=== PATIENT | female | born 1955 | race Caucasian/White ===

== ENCOUNTER 2016-08-11 07:55 | Emergency (ER) | payer OTHER ==
[~2016-08-11 07:55] MED LIST: ALBI50PE SC; AMLO1CAP15 PO; AMLO1CAP5; ATOR20TA9 PO; CALC-56 PO; CANA100T PO; CIPR500S2 PO; EXEN5PEN2; HYDR-3240 PO; INSU100I32 SC; METF500T27 PO; METR500T PO
[2016-08-11] MEDS ORDERED: ASPIRIN 81 MG TABLET CHEW ONE (08:21)
[2016-08-11] MEDS ORDERED: HYDROcodone/APAP 5/325 TABLET ONE (09:11)
[2016-08-12 12:59] LABS: BLOOD UREA NITROGEN 18 mg/dL (7-18)
[2016-08-12 13:01] LABS: IS PT STATUS REG ER OR PRE ER? YES
== END 2016-08-11 12:02 ==
LOC: ED 07:55
DX: M54.12 Radiculopathy, cervical region (principal); I25.2 Old myocardial infarction
CPT/HCPCS: 36415; 71020; 80048; 82040; 84484; 85025; 93005; 99285

== ENCOUNTER 2016-11-02 08:55 | Emergency (ER) | payer OTHER ==
[~2016-11-02] VITALS: Ht 160 cm; Wt 62.0 kg
[2016-11-02 09:49] LABS: HEMATOCRIT 40.2 % (34.6-47.8); HEMOGLOBIN 13.4 g/dL (11.7-16.4); WHITE BLOOD COUNT 5.4 x10^3/uL (3.4-10)
[2016-11-02 09:59] LABS: BLOOD UREA NITROGEN 16 mg/dL (7-18)
[2016-11-02] MEDS ORDERED: MORPHINE SULFATE 4 MG/ML, 1ML ONE (10:57)
[2016-11-02] MEDS ORDERED: ONDANSETRON 2MG/ML, 2ML ONE (10:58)
[2016-11-02] MEDS ORDERED: MORPHINE SULFATE 4 MG/ML, 1ML IVPush PRN (11:00)
[2016-11-02] MEDS ORDERED: ONDANSETRON 2MG/ML, 2ML IVPush ONE (11:00)
[2016-11-02] MEDS ORDERED: OMNIPAQUE 350 MG/ML, 100ML BOTTLE ONE (11:27)
[2016-11-02 12:01] VITALS: BP 146/78
== END 2016-11-02 13:02 | disposition home or self-care (01) ==
LOC: ED 09:08
DX: R10.30 Lower abdominal pain, unspecified (principal); N28.1 Cyst of kidney, acquired; I10 Essential (primary) hypertension; E11.9 Type 2 diabetes mellitus without complications; J44.9 Chronic obstructive pulmonary disease, unspecified
CPT/HCPCS: 36415; 51702; 74177; 80048; 81003; 82040; 85025; 96374; 96375; 99285; J2405; Q9967

== ENCOUNTER 2016-12-24 10:07 | Emergency (ER) | payer OTHER ==
[~2016-12-24] VITALS: Ht 160 cm; Wt 63.0 kg
[2016-12-24] MEDS ORDERED: SODIUM CHLORIDE 0.9% 1,000 ML IV ONE (10:37)
[2016-12-24 10:57] LABS: HEMATOCRIT 43.2 % (34.6-47.8); HEMOGLOBIN 14.5 g/dL (11.7-16.4); WHITE BLOOD COUNT 5.7 x10^3/uL (3.4-10)
[2016-12-24] MEDS ORDERED: SODIUM CHLORIDE FLUSH 10ML SYR IVF ONE (11:00)
[2016-12-24 11:09] LABS: ASPARTATE AMINO TRANSFERASE 22 U/L (15-37); BLOOD UREA NITROGEN 12 mg/dL (7-18)
[2016-12-24 11:13] LABS: PATH.CAST-FLAG NOT PRESENT; SPERM-FLAG NOT PRESENT; SRC-FLAG NOT PRESENT; XTAL-FLAG NOT PRESENT; YLC-FLAG NOT PRESENT
[2016-12-24] MEDS ORDERED: morphine SULFATE 10 MG/ML, 1ML ONE (12:03)
[2016-12-24] MEDS ORDERED: ONDANSETRON 2MG/ML, 2ML ONE (12:03)
[2016-12-24] MEDS ORDERED: ONDANSETRON 2MG/ML, 2ML IVPush ONE (12:30)
[2016-12-24] MEDS ORDERED: MORPHINE SULFATE 4 MG/ML, 1ML IVPush ONE (12:30)
[2016-12-24] MEDS ORDERED: GADOBUTROL 10 MMOL/10 ML VIAL ONE (12:53)
[2016-12-24 15:21] VITALS: BP 136/76
== END 2016-12-24 15:24 | disposition home or self-care (01) ==
LOC: ED 12:09
DX: N28.1 Cyst of kidney, acquired (principal); I10 Essential (primary) hypertension; J44.9 Chronic obstructive pulmonary disease, unspecified; E11.9 Type 2 diabetes mellitus without complications
CPT/HCPCS: 36415; 74183; 80053; 81001; 85025; 96361; 96374; 96375; 99285; A9585; J2405; J7030

== ENCOUNTER 2017-04-04 10:16 | Inpatient (IN) | payer OTHER ==
[~2017-04-04] VITALS: Ht 160 cm; Wt 61.2 kg
[2017-04-04] MEDS ORDERED: SODIUM CHLORIDE 0.9% 1,000ML IVBOLUS ONE (11:00)
[2017-04-04] MEDS ORDERED: ONDANSETRON 2MG/ML, 2ML IVPush ONE (11:00)
[2017-04-04] MEDS ORDERED: ONDANSETRON 2MG/ML, 2ML ONE (11:04)
[2017-04-04] MEDS ORDERED: MORPHINE SULFATE 4 MG/ML, 1ML ONE ×2 (11:04→12:03)
[2017-04-04] MEDS: MORPHINE SULFATE 4 MG/ML, 1ML IVPush PRN ×2 (11:05→12:06)
[2017-04-04 11:16] LABS: ALBUMIN 3.3 g/dL (3.4-5.0); ANION GAP 7 mmol/L (5-15); CALCIUM 8.8 mg/dL (8.5-10.1); CHLORIDE 105 mmol/L (98-107)
[2017-04-04 11:17] LABS: BASOPHILS # (AUTO) 0.03 x10^3/uL (0-0.1); BASOPHILS % (AUTO) 0 % (0-1); EOSINOPHILS # (AUTO) 0.12 x10^3/uL (0-0.4); EOSINOPHILS % (AUTO) 2 % (1-7); LYMPHOCYTES % (AUTO) 20 % (22-44); MD NO; MEAN CORPUSCULAR HGB CONC 33.4 g/dL (32.4-35.8); MEAN CORPUSCULAR VOLUME 83.8 fL (80-100); MEAN PLATELET VOLUME 8.8 fL (7.4-10.4); MONOCYTES # (AUTO) 0.58 x10^3/uL (0.2-0.8); MONOCYTES % (AUTO) 9 % (2-9); NEUTROPHILS # (AUTO) 4.41 x10^3/uL (1.8-6.8); NEUTROPHILS % (AUTO) 69 % (42-75); PLATELET COUNT 199 x10^3/uL (130-400); RED BLOOD COUNT 5.09 x10^6/uL (3.82-5.3); RED CELL DISTRIBUTION WIDTH 13.9 % (9.6-15.2)
[2017-04-04 11:19] LABS: ALANINE AMINOTRANSFERASE 22 U/L (12-78); ALKALINE PHOSPHATASE 86 U/L (45-117); BILIRUBIN,TOTAL 0.4 mg/dL (0.2-1.0); CREATININE 0.65 mg/dL (0.55-1.02); TOTAL PROTEIN 6.5 g/dL (6.4-8.2)
[2017-04-04 11:35] LABS: MICROSCOPIC AUTO
[2017-04-04 11:36] LABS: CULTURE INDICATED? YES
[2017-04-04] MEDS ORDERED: OMNIPAQUE 350 MG/ML, 100ML BOTTLE ONE (11:38)
[2017-04-04 13:49] VITALS: BP 157/76
[2017-04-04] MEDS ORDERED: morphine SULFATE 10 MG/ML, 1ML IVPush PRN (14:30)
[2017-04-04] MEDS ORDERED: ONDANSETRON ODT 4 MG PO PRN (14:30)
[2017-04-04] MEDS ORDERED: ENALAPRILAT 1.25 MG/ML, 2ML IVPush PRN (14:30)
[2017-04-04] MEDS ORDERED: HYDROcodone/APAP 5/325 TABLET PO PRN (14:30)
[2017-04-04] MEDS ORDERED: ACETAMINOPHEN 325 MG TABLET PO PRN (14:30)
[2017-04-04] MEDS ORDERED: DOCUSATE 100 MG CAPSULE PO PRN (14:30)
[2017-04-04] MEDS: AMLODIPINE 5 MG TABLET PO SCH (14:49)
[2017-04-04] MEDS: BENAZEPRIL 20 MG TABLET PO SCH (14:49)
[2017-04-04] MEDS ORDERED: ENOXAPARIN 40 MG/0.4 ML SQ SCH (15:00)
[2017-04-04] MEDS: INSULIN REGULAR 100 UNITS/ML, 3ML VIAL SQ-INSULIN SCH ×2 (16:16→21:00)
[2017-04-04] MEDS: ONDANSETRON 2MG/ML, 2ML IVPush PRN (16:20)
[2017-04-04 19:13] VITALS: BP 158/80
[2017-04-04] MEDS ORDERED: INSULIN GLARGINE 100 UNITS/ML, PEN SQ-INSULIN SCH (21:00)
[2017-04-05 01:48] VITALS: BP 129/79
[2017-04-05 04:34] LABS: ALANINE AMINOTRANSFERASE 114 U/L (12-78); ALBUMIN 3.1 g/dL (3.4-5.0); ANION GAP 6 mmol/L (5-15); CALCIUM 8.5 mg/dL (8.5-10.1); CHLORIDE 107 mmol/L (98-107); CREATININE 0.66 mg/dL (0.55-1.02)
[2017-04-05 04:40] LABS: ALKALINE PHOSPHATASE 87 U/L (45-117); CHOL/HDL RATIO 1.6; CHOLESTEROL, TOTAL 145 mg/dL (140-239); HDL CHOL % 64 % (28-40); HDL CHOLESTEROL (DIRECT) 93 mg/dL (40-60); LDL CHOLESTEROL,CALCULATED 31 mg/dL (54-169); LDL/HDL RATIO 0.3 (0.5-3.0); TOTAL PROTEIN 6.4 g/dL (6.4-8.2); TRIGLYCERIDES 104 mg/dL (50-200); VLDL CHOLESTEROL 21 mg/dL (0-25)
[2017-04-05] MEDS: ONDANSETRON 2MG/ML, 2ML IVPush PRN (05:40)
[2017-04-05] MEDS: INSULIN REGULAR 100 UNITS/ML, 3ML VIAL SQ-INSULIN SCH ×2 (07:07→11:44)
[2017-04-05 07:16] VITALS: BP 123/79
[2017-04-05] MEDS ORDERED: OMEPRAZOLE 20 MG CAPSULE.DR PO SCH (07:30)
[2017-04-05] MEDS: BENAZEPRIL 20 MG TABLET PO SCH (07:46)
[2017-04-05] MEDS: AMLODIPINE 5 MG TABLET PO SCH (07:46)
[2017-04-05] MEDS ORDERED: ONDA4TAB13 PO (11:59)
[2017-04-05 12:54] VITALS: BP 105/66
== END 2017-04-05 13:47 | disposition home or self-care (01) | DRG 440 ==
LOC: ED 11:16 → EDIP 12:29 → 3NW 13:10 → DCLOUNGE 04-05 13:39
PROVIDERS: ADMIT Family Medicine; ATTEND Family Medicine
DX: K85.00 Idiopathic acute pancreatitis without necrosis or infection (principal); E11.9 Type 2 diabetes mellitus without complications; N28.9 Disorder of kidney and ureter, unspecified; I25.2 Old myocardial infarction; K21.9 Gastro-esophageal reflux disease without esophagitis; K52.9 Noninfective gastroenteritis and colitis, unspecified; I10 Essential (primary) hypertension; J44.9 Chronic obstructive pulmonary disease, unspecified; K57.90 Diverticulosis of intestine, part unspecified, without perforation or abscess without bleeding; Z90.49 Acquired absence of other specified parts of digestive tract; Z87.891 Personal history of nicotine dependence; Z79.4 Long term (current) use of insulin
CPT/HCPCS: 36415; 74177; 80053; 80061; 81001; 82962; 83690; 83735; 85025; 86704; 86706; 86708; 86803; 87086; 87340; 93005; 96361; 96374; 96375; 96376; J1815; J2405; Q9967; J2270; J7030

== ENCOUNTER 2019-03-03 07:49 | Emergency (ER) | payer OTHER ==
[~2019-03-03] VITALS: Ht 160 cm; Wt 61.0 kg
[~2019-03-03 07:49] MED LIST changes: -ALBI50PE SC; +ALBI50PE3 SC; -AMLO1CAP15 PO; +AMLO1CAP54 PO; +ATOR20TA37 PO; -ATOR20TA9 PO; +ONDA4TAB13 PO
[2019-03-03 08:18] VITALS: BP 156/81
--- NOTE | 2019-03-03 08:57 | NUR ---
INTEL ANALYST: PT TO ROOM FROM LOBBY
[2019-03-03 09:45] LABS: ALANINE AMINOTRANSFERASE 34 U/L (12-78); ALBUMIN 3.6 g/dL (3.4-5.0); ANION GAP 7 mmol/L (5-15); CALCIUM 8.7 mg/dL (8.5-10.1); CHLORIDE 108 mmol/L (98-107); CREATININE 1.04 mg/dL (0.55-1.02)
[2019-03-03 09:49] LABS: ALKALINE PHOSPHATASE 100 U/L (45-117); BILIRUBIN,TOTAL 0.5 mg/dL (0.2-1.0); TOTAL PROTEIN 7.1 g/dL (6.4-8.2); TROPONIN I < 0.015 ng/mL (0.000-0.045)
[2019-03-03 09:50] LABS: BASOPHILS # (AUTO) 0.05 x10^3/uL (0-0.1); BASOPHILS % (AUTO) 1 % (0-1); EOSINOPHILS # (AUTO) 0.66 x10^3/uL (0-0.4); EOSINOPHILS % (AUTO) 9 % (1-7); LYMPHOCYTES # (AUTO) 1.78 x10^3/uL (1-3.4); LYMPHOCYTES % (AUTO) 25 % (22-44); MD NO; MEAN CORPUSCULAR HEMOGLOBIN 27.5 pg (27.0-34.8); MEAN CORPUSCULAR HGB CONC 32.3 g/dL (32.4-35.8); MEAN CORPUSCULAR VOLUME 85.3 fL (80-100); MEAN PLATELET VOLUME 9.6 fL (7.4-10.4); MONOCYTES # (AUTO) 0.51 x10^3/uL (0.2-0.8); MONOCYTES % (AUTO) 7 % (2-9); NEUTROPHILS # (AUTO) 4.01 x10^3/uL (1.8-6.8); NEUTROPHILS % (AUTO) 57 % (42-75); PLATELET COUNT 198 x10^3/uL (130-400); RED BLOOD COUNT 4.92 x10^6/uL (3.82-5.3); RED CELL DISTRIBUTION WIDTH 14.4 % (9.6-15.2)
[2019-03-03] MEDS ORDERED: ONDANSETRON 2MG/ML, 2ML ONE (09:59)
[2019-03-03] MEDS ORDERED: MAALOX/HYOSCYAMINE/LIDOCAINE 45 ML BTL ONE (09:59)
[2019-03-03] MEDS ORDERED: MORPHINE SULFATE 4 MG/ML, 1ML ONE (09:59)
[2019-03-03] MEDS ORDERED: PANTOPRAZOLE 40 MG IV IVPush ONE (10:00)
[2019-03-03] MEDS ORDERED: MAALOX/HYOSCYAMINE/LIDOCAINE 45 ML BTL PO ONE (10:00)
[2019-03-03] MEDS ORDERED: ONDANSETRON 2MG/ML, 2ML IVPush ONE (10:00)
[2019-03-03] MEDS ORDERED: SODIUM CHLORIDE 0.9% 1,000ML IVBOLUS ONE (10:00)
[2019-03-03] MEDS ORDERED: MORPHINE SULFATE 4 MG/ML, 1ML IVPush PRN (10:00)
[2019-03-03 10:05] LABS: MICROSCOPIC NOT IND
[2019-03-03 10:13] LABS: CULTURE INDICATED? NO
[2019-03-03] MEDS ORDERED: PANTOPRAZOLE 40 MG IV ONE (10:38)
--- NOTE | 2019-03-03 11:06 | NUR ---
PT MEDICATED PER MAR. AT BEDSIDE. URINE COLLECTED AND SENT. PT RESULTS IN, CHART UP FOR ERP REVIEW. PT AND DENY ANY FURTHER CONCERNS OR ISSUES AT THIS TIME, CALL LIGHT IN REACH.
[2019-03-03] MEDS ORDERED: DICYCLOMINE 10 MG/ML, 2ML IM ONE (11:30)
[2019-03-03] MEDS ORDERED: DICYCLOMINE 10 MG/ML, 2ML ONE (11:40)
== END 2019-03-03 12:15 | disposition home or self-care (01) ==
LOC: ED 11:36
DX: K29.01 Acute gastritis with bleeding (principal); J44.9 Chronic obstructive pulmonary disease, unspecified; I25.2 Old myocardial infarction; I10 Essential (primary) hypertension; E11.9 Type 2 diabetes mellitus without complications
CPT/HCPCS: 36415; 76700; 80053; 81003; 83690; 84484; 85025; 93005; 96361; 96372; 96374; 96375; 99284; C9113; J0500; J2270; J2405; J7030

== ENCOUNTER 2019-04-07 15:44 | Observation (INO) | payer OTHER ==
[~2019-04-07] VITALS: Ht 160 cm; Wt 62.9 kg
--- NOTE | 2019-04-07 16:12 | NUR ---
THIS IS A 63 YO F W/ C/O LEFT SIDED GROIN PAIN THAT RADIATES INTO INNER THIGH. PT REPORTS GETTING OUT OF CAR WHEN SUDDEN ONSET OF SHARP PAIN STARTED 09/14. NO BRUISING OR EDEMA OBSERVED. RESP EVEN AND UNLABORED. VS STABLE. NADN. PT IS RESTING ON GURNEY W/ FAMILY AT BEDSIDE. CALL LIGHT IN REACH. AWAITING ED EVAL. DENIES FURTHER NEEDS AT THIS TIME.
--- NOTE | 2019-04-07 16:38 | NUR ---
PT [facility]ING [facility]. REQUESTING PAIN MEDS. ERP NOTIFIED.
[2019-04-07] MEDS ORDERED: OMNIPAQUE 350 MG/ML, 100ML BOTTLE ONE (17:08)
[2019-04-07] MEDS ORDERED: HYDROmorphone 1 MG/ML, 1ML INJ ONE (17:23)
[2019-04-07] MEDS ORDERED: ONDANSETRON 2MG/ML, 2ML ONE (17:24)
--- NOTE | 2019-04-07 17:28 | NUR ---
PT TRANSFERED TO [facility].
[2019-04-07] MEDS ORDERED: HYDROmorphone 1 MG/ML, 1ML INJ IVPush PRN (17:30)
[2019-04-07] MEDS ORDERED: ONDANSETRON 2MG/ML, 2ML IVPush ONE (17:30)
--- NOTE | 2019-04-07 17:53 | NUR ---
PIV STARTED AND PT MEDICATED PER EMAR.
[2019-04-07 17:54] LABS: BASOPHILS # (AUTO) 0.03 x10^3/uL (0-0.1); BASOPHILS % (AUTO) 0 % (0-1); EOSINOPHILS # (AUTO) 0.36 x10^3/uL (0-0.4); EOSINOPHILS % (AUTO) 5 % (1-7); LYMPHOCYTES # (AUTO) 2.04 x10^3/uL (1-3.4); LYMPHOCYTES % (AUTO) 26 % (22-44); MD NO; MEAN CORPUSCULAR HGB CONC 32.2 g/dL (32.4-35.8); MEAN CORPUSCULAR VOLUME 83.8 fL (80-100); MEAN PLATELET VOLUME 9.1 fL (7.4-10.4); MONOCYTES # (AUTO) 0.51 x10^3/uL (0.2-0.8); MONOCYTES % (AUTO) 7 % (2-9); NEUTROPHILS # (AUTO) 4.98 x10^3/uL (1.8-6.8); NEUTROPHILS % (AUTO) 63 % (42-75); PLATELET COUNT 219 x10^3/uL (130-400); RED BLOOD COUNT 5.37 x10^6/uL (3.82-5.3); RED CELL DISTRIBUTION WIDTH 14.4 % (9.6-15.2)
[2019-04-07 18:03] LABS: ALANINE AMINOTRANSFERASE 20 U/L (12-78); ALBUMIN 3.5 g/dL (3.4-5.0); ANION GAP 8 mmol/L (5-15); CHLORIDE 109 mmol/L (98-107); CREATININE 0.84 mg/dL (0.55-1.02)
[2019-04-07 18:06] LABS: ALKALINE PHOSPHATASE 103 U/L (45-117); BILIRUBIN,TOTAL 0.3 mg/dL (0.2-1.0); TOTAL PROTEIN 7.2 g/dL (6.4-8.2)
--- NOTE | 2019-04-07 18:26 | NUR ---
TELEPHONE CALL TO CT. PT IS NEXT IN LINE FOR EXAM.
[2019-04-07] MEDS ORDERED: SODIUM CHLORIDE FLUSH 10ML SYR IVF ONE (18:30)
--- NOTE | 2019-04-07 19:01 | NUR ---
REPORT FROM TY KAPOOR
[2019-04-07] MEDS ORDERED: ASPIRIN 81 MG TABLET CHEW ONE (20:35)
--- NOTE | 2019-04-07 20:37 | NUR ---
PT MEDICATED PER MAR
[2019-04-07] MEDS ORDERED: ASPIRIN 81 MG TABLET CHEW PO ONE (21:00)
[2019-04-07] MEDS ORDERED: EMPA25TA PO (21:01)
[2019-04-07] MEDS ORDERED: LANS30CA PO (21:01)
[2019-04-07] MEDS ORDERED: [UNRECOGNIZED DRUG - OTHER] PO (21:01)
--- NOTE | 2019-04-07 21:25 | NUR ---
REPORT CALLED TO ANAMARIA KAPOOR ALL QUESTIONS ADDRESSED PT READY FOR TRANSPOR TO FLOOR
[2019-04-07] MEDS ORDERED: DEXTROSE 4 GM TAB.CHEW PO PRN (23:30)
[2019-04-07] MEDS ORDERED: DEXTROSE 50%, 50ML SYRINGE IVPush PRN (23:30)
[2019-04-07] MEDS ORDERED: ACETAMINOPHEN 325 MG TABLET PO PRN (23:30)
[2019-04-07] MEDS ORDERED: GLUCAGON 1 MG IM PRN (23:30)
[2019-04-07] MEDS ORDERED: KETOROLAC 30 MG/1 ML IM PRN (23:30)
[2019-04-07] MEDS: CYCLOBENZAPRINE 10 MG TABLET PO PRN ×2 (23:31→23:34)
[2019-04-08 02:06] VITALS: BP 123/80
[2019-04-08 06:54] VITALS: BP 121/78
[2019-04-08] MEDS: INSULIN LISPRO 100 UNITS/ML, PEN SQ-INSULIN SCH ×2 (07:00→11:00)
[2019-04-08] MEDS ORDERED: CALCIUM/VITAMIN D3 250-125 TABLET PO SCH (09:00)
[2019-04-08] MEDS ORDERED: metFORMIN XR 500 MG TAB.ER.24H PO SCH (09:00)
[2019-04-08] MEDS ORDERED: BENAZEPRIL 20 MG TABLET PO SCH (09:00)
[2019-04-08] MEDS ORDERED: PANTOPROZOLE 40MG TABLET PO SCH (09:00)
[2019-04-08] MEDS ORDERED: SODIUM CHLORIDE FLUSH 10ML SYR IVF SCH (09:00)
[2019-04-08] MEDS ORDERED: AMLODIPINE 10 MG TAB PO SCH (09:00)
[2019-04-08] MEDS ORDERED: CYCL-259 PO (12:26)
[2019-04-08] MEDS ORDERED: IBUP-1222 PO (13:01)
== END 2019-04-08 13:10 | disposition home or self-care (01) ==
LOC: ED 16:19 → INTOOBSV 22:46 → 3N 22:46 → DCLOUNGE 04-08 12:58
PROVIDERS: ADMIT Family Medicine; ATTEND Family Medicine
DX: S39.011A Strain of muscle, fascia and tendon of abdomen, initial encounter (principal); R10.30 Lower abdominal pain, unspecified; E11.9 Type 2 diabetes mellitus without complications; I25.10 Atherosclerotic heart disease of native coronary artery without angina pectoris; I10 Essential (primary) hypertension; I25.2 Old myocardial infarction; Z79.4 Long term (current) use of insulin; Z79.899 Other long term (current) drug therapy; X50.0XXA Overexertion from strenuous movement or load, initial encounter; Y93.89 Activity, other specified; Y92.89 Other specified places as the place of occurrence of the external cause
CPT/HCPCS: 36415; 72193; 80053; 82962; 85025; 93005; 93971; 96372; 96374; 96375; 97161; 97165; 99284; G0378; J1170; J1885; J2405; Q9967

== ENCOUNTER 2019-04-13 11:01 | Outpatient (CLI) | payer OTHER ==
[~2019-04-13 11:01] MED LIST changes: +CYCL-259 PO; +EMPA25TA PO; +IBUP-1222 PO; +LANS30CA PO; +[UNRECOGNIZED DRUG - OTHER] PO
[2019-04-13] MEDS ORDERED: CHOL500045 PO (11:33)
[2019-04-13] MEDS ORDERED: ROSU10TA2 PO (11:33)
[2019-04-13 12:37] LABS: MICROSCOPIC NOT IND
[2019-04-13 12:43] LABS: CULTURE INDICATED? NO
== END 2019-04-13 23:59 | disposition home or self-care (01) ==
LOC: STAR 11:01
PROVIDERS: ATTEND Internal Medicine Gastroenterology
DX: Z01.818 Encounter for other preprocedural examination (principal); R93.89 Abnormal findings on diagnostic imaging of other specified body structures; R12 Heartburn
CPT/HCPCS: 81003

== ENCOUNTER 2019-04-20 06:26 | Day surgery (SDC) | payer OTHER ==
[~2019-04-20] VITALS: Ht 160 cm; Wt 60.2 kg
[~2019-04-20 06:26] MED LIST changes: +CHOL500045 PO; +ROSU10TA2 PO
[2019-04-20] MEDS ORDERED: LACTATED RINGERS 1,000 ML IV SCH (07:13)
[2019-04-20 07:16] VITALS: BP 132/87
[2019-04-20] MEDS ORDERED: LABETALOL 5MG/ML, 20ML IV PRN (07:30)
[2019-04-20] MEDS ORDERED: FENTANYL PF 100 MCG/2ML IV PRN (07:30)
[2019-04-20] MEDS ORDERED: HYDROmorphone 2 MG/ML, 1ML IVPush PRN (07:30)
[2019-04-20] MEDS ORDERED: OXYcodone 5 MG/5 ML ORAL.SOL UDC PO PRN (07:30)
[2019-04-20] MEDS ORDERED: hydrALAzine 20 MG/ML, 1ML IV PRN (07:30)
[2019-04-20] MEDS ORDERED: ONDANSETRON 2MG/ML, 2ML IV PRN (07:30)
[2019-04-20] MEDS ORDERED: MEPERIDINE/PF 25MG/ML,1ML IVPush PRN (07:30)
[2019-04-20] MEDS ORDERED: PROMETHAZINE 25 MG/ML, 1ML IV PRN (07:30)
[2019-04-20] MEDS ORDERED: FENTANYL PF 100 MCG/2ML ONE (07:54)
[2019-04-20] MEDS ORDERED: MIDAZOLAM 1 MG/ML, 2ML ONE (07:54)
[2019-04-20] MEDS ORDERED: EPHEDRINE 50 MG/ML, 1ML ONE (08:05)
== END 2019-04-20 10:50 | disposition home or self-care (01) ==
LOC: OUT 06:26
PROVIDERS: ATTEND Internal Medicine Gastroenterology
DX: R93.5 Abnormal findings on diagnostic imaging of other abdominal regions, including retroperitoneum (principal); K29.50 Unspecified chronic gastritis without bleeding; K21.9 Gastro-esophageal reflux disease without esophagitis; I10 Essential (primary) hypertension; E11.9 Type 2 diabetes mellitus without complications; I25.2 Old myocardial infarction; Z79.84 Long term (current) use of oral hypoglycemic drugs; Z79.899 Other long term (current) drug therapy; Z88.2 Allergy status to sulfonamides; Z90.49 Acquired absence of other specified parts of digestive tract; Z98.890 Other specified postprocedural states; Z83.71 Family history of colonic polyps
CPT/HCPCS: 43239; 43259; 82962; 88305; J2250; J3010

== ENCOUNTER 2019-11-15 08:33 | Emergency (ER) | payer OTHER ==
[~2019-11-15] VITALS: Ht 160 cm; Wt 58.3 kg
--- NOTE | 2019-11-15 09:07 | NUR ---
ASSUMED CARE OF PT AT THIS TIME FROM [facility]. AMBULATORY TO ROOM WITH STEADY GAIT ACCOMPANIED WITH SPOUSE. 63 Y/O A&OX4 F PRESENTS STATING "I HAD A STENT PLACED IN MY HEART ON 10/19 AND ABOUT A WEEK AFTER I GOT A LITTLE BUMP ON MY RIGHT WARD, THE [employer]ER TENDER DR. PETTIT LOOKED AT IT AND WASN'T CONCERNED BUT NOW IT'S GETTING BIGGER AND MORE TENDER, MOSTLY TO TOUCH, NOT SO MUCH WITH WALKING, LEGS CRAMPS AT NIGHT." DENIES INJURY OR TRAUMA "I DON'T REMEMBER HITTING MY LEG ON ANYTHING." RATES PAIN 05/15. SMALL BUMP NOTED TO RIGHT WARD, MEDIAL ASPECT OF LEG. CONT PULSE OX, BP MONITORS APPLIED. VSS. CALL LIGHT IN REACH, FALL PRECUATIONS IN PLACE. SPOUSE AT BEDSIDE. CHERY OSHEA AT BEDSIDE FOR EVALUATION. AWAITING ORDERS.
[2019-11-15] MEDS ORDERED: CLOP75TA52 PO (09:23)
[2019-11-15] MEDS ORDERED: ROSU10TA2 PO (09:23)
[2019-11-15] MEDS ORDERED: LIXISENATIDE PO (09:23)
[2019-11-15] MEDS ORDERED: ASPI-515 PO (09:23)
[2019-11-15] MEDS ORDERED: INSULIN GLARGINE PO (09:23)
--- NOTE | 2019-11-15 10:08 | NUR ---
CHERY OSHEA AT BEDSIDE FOR RECHECK, DISCUSSING POC AND D/C INSTRUCTIONS WITH PT AND SPOUSE. PT AMBULATED TO RESTROOM WITH STEADY GAIT. NAD NOTED. VSS. CALL LIGHT IN REACH. FALL PRECAUTIONS IN PLACE.
[2019-11-15 10:09] VITALS: BP 124/83
--- NOTE | 2019-11-15 10:25 | NUR ---
AWAITING DISCHARGE PAPERS FROM ERP
--- NOTE | 2019-11-15 10:36 | NUR ---
Patient given discharge instructions and they have confirmed that they understand the instructions. Patient ambulatory with steady gait.
== END 2019-11-15 10:37 | disposition home or self-care (01) ==
LOC: ED 09:11
DX: M79.604 Pain in right leg (principal); R22.41 Localized swelling, mass and lump, right lower limb; J44.9 Chronic obstructive pulmonary disease, unspecified; E11.9 Type 2 diabetes mellitus without complications; I25.2 Old myocardial infarction; I10 Essential (primary) hypertension
CPT/HCPCS: 99283